=== PATIENT | male | born 1955 | race Caucasian/White ===

== ENCOUNTER 2016-05-20 07:56 | Emergency (ER) | payer BC ==
[~2016-05-20] VITALS: Ht 177.8 cm; Wt 77.3 kg
[2016-05-20 08:01] VITALS: BP 131/94; PULSE 84; TEMP 97.7
[2016-05-20] MEDS ORDERED: ULTRAM 50MG TAB50 MG PO (08:04)
[2016-05-20] MEDS ORDERED: CYMBALTA 30MG30 MG PO (08:04)
[2016-05-20] MEDS ORDERED: PRINIVIL10 MG PO (08:04)
[2016-05-20] MEDS ORDERED: ORTEZLA PO (08:22)
[2016-05-20] MEDS ORDERED: CEPHALEXIN500 M1 PO (09:22)
== END 2016-05-20 09:39 | disposition home or self-care (01) ==
LOC: COL.ER 07:56
DX: S61.012A Laceration without foreign body of left thumb without damage to nail, initial encounter (principal); S61.211A Laceration without foreign body of left index finger without damage to nail, initial encounter; S61.213A Laceration without foreign body of left middle finger without damage to nail, initial encounter; W45.8XXA Other foreign body or object entering through skin, initial encounter; W22.8XXA Striking against or struck by other objects, initial encounter; I10 Essential (primary) hypertension; E11.9 Type 2 diabetes mellitus without complications; Z23 Encounter for immunization